=== PATIENT | female | born 1970 | race Caucasian/White ===

== ENCOUNTER 2016-09-18 18:05 | Emergency (ER) | payer SELFPAY ==
[~2016-09-18] VITALS: Ht 185.4 cm; Wt 142.9 kg
[2016-09-18 20:58] VITALS: BP 164/72
--- NOTE | 2016-09-18 22:08 | PHYS DOC ---
Past Medical History Past Medical History: No Pertinent History Past Surgical History: Tubal ligation, Other Additional Past Surgical Histo: dental Alcohol Use: None Drug Use: None Adult General Chief Complaint Chief Complaint: FOOT INJURY PAIN [facility] HPI Patient is a 46 year old female who presents with complaint of pain and redness to the left foot. Patient states that her symptoms started 3 months ago. The patient states that she has visited 2 separate hospitals and has been placed on antibiotic therapy. Patient states that after treatment with nystatin as well as an antibiotic that she is unable to name, the symptoms initially got better. She states however after discontinuing the antibiotics the symptoms came back. Patient states that the foot has become more red, swollen, and painful. Patient denies any associated fever, lightheadedness, chest pain, shortness of breath, nausea, or vomiting. Patient states that her pain as 10 out of 10 with weightbearing. Review of Systems Review of Systems Constitutional: Denies fever or chills [] Eyes: Denies change in visual acuity, redness, or eye pain [] HENT: Denies nasal congestion or sore throat [] Respiratory: Denies cough or shortness of breath [] Cardiovascular: No additional information not addressed in HPI [] GI: Denies abdominal pain, nausea, vomiting, bloody stools or diarrhea [] : Denies dysuria or hematuria [] Musculoskeletal: Left foot pain, redness, swelling [] Integument: Dry skin formation over foot lesions [] Neurologic: Denies headache, focal weakness or sensory changes [] Endocrine: Denies polyuria or polydipsia [] Allergies Allergies Allergies Coded Allergies Type Severity Reaction Last Updated Verified No Known Drug Allergies 05/01/14 No Physical Exam Physical Exam Constitutional: Alert, morbidly obese, afebrile, no acute distress. [] HENT: Normocephalic, atraumatic, bilateral external ears normal, oropharynx moist, no oral exudates, nose normal. [] Eyes: PERRLA, EOMI, conjunctiva normal, no discharge. [] Neck: Normal range of motion, no tenderness, supple, no stridor. [] Cardiovascular:Heart rate regular rhythm, no murmur [] Lungs & Thorax: Bilateral breath sounds clear to auscultation [] Abdomen: Bowel sounds normal, soft, no tenderness, no masses, no pulsatile masses. [] Skin: Warm, dry, left foot erythematous. [] Back: No tenderness, no CVA tenderness. [] Extremities: Discrete erythematous lesions along dorsum, medial, and lateral aspect of left foot with 3+ edema, dry plaque-like lesions present along dorsal lateral aspect of foot, pulses 2+, warmth and tenderness to palpation. [] Neurologic: Alert and oriented X 3, normal motor function, normal sensory function, no focal deficits noted. [] Current Patient Data Vital Signs Vital Signs Date Time Temp Pulse Resp B/P Pulse Ox O2 Delivery O2 Flow Rate FiO2 09/18/16 20:58 98.1 76 16 164/72 99 Room Air 98.1 Lab Values Laboratory Tests Test 09/18/16 22:20 09/18/16 22:30 Urine Collection Type Unknown Urine Color Yellow Urine Clarity Clear Urine pH 5.5 Urine Specific [place] 1.020 Urine Protein Negativemg/dL (NEG-TRACE) Urine Glucose (UA) Negativemg/dL (NEG) Urine Ketones (Stick) Negativemg/dL (NEG) Urine Blood Negative (NEG) Urine Nitrite Negative (NEG) Urine Bilirubin Negative (NEG) Urine Urobilinogen Dipstick 0.2mg/dL (0.2 mg/dL) Urine Leukocyte Esterase Negative (NEG) Urine RBC 0/HPF (0-2) Urine WBC Occ/HPF (0-4) Urine Squamous Epithelial Cells Mod/LPF Urine Bacteria Moderate/HPF (0-FEW) Urine Mucus Mod/LPF White Blood Count 7.8x10^3/uL (4.0-11.0) Red Blood Count 4.58x10^6/uL (3.50-5.40) Hemoglobin 11.9g/dL (12.0-15.5) L Hematocrit 37.4% (36.0-47.0) Mean Corpuscular Volume 82fL (79-100) Mean Corpuscular Hemoglobin 26pg (25-35) Mean Corpuscular Hemoglobin Concent 32g/dL (31-37) Red Cell Distribution Width 16.8% (11.5-14.5) H Platelet Count 321x10^3/uL (140-400) Neutrophils (%) (Auto) 51% (31-73) Lymphocytes (%) (Auto) 38% (24-48) Monocytes (%) (Auto) 8% (0-9) Eosinophils (%) (Auto) 2% (0-3) Basophils (%) (Auto) 1% (0-3) Neutrophils # (Auto) 4.0x10^3uL (1.8-7.7) Lymphocytes # (Auto) 3.0x10^3/uL (1.0-4.8) Monocytes # (Auto) 0.6x10^3/uL (0.0-1.1) Eosinophils # (Auto) 0.1x10^3/uL (0.0-0.7) Basophils # (Auto) 0.1x10^3/uL (0.0-0.2) Sodium Level 143mmol/L (136-145) Potassium Level 3.9mmol/L (3.5-5.1) Chloride Level 105mmol/L (98-107) Carbon Dioxide Level 29mmol/L (21-32) Anion Gap 9 (6-14) Blood Urea Nitrogen 22mg/dL (7-20) H Creatinine 0.9mg/dL (0.6-1.0) Estimated GFR (Cockcroft-Gault) 68.0 BUN/Creatinine Ratio 24 (6-20) H Glucose Level 102mg/dL (70-99) H Calcium Level 8.7mg/dL (8.5-10.1) Total Bilirubin 0.2mg/dL (0.2-1.0) Aspartate Amino Transferase (AST) 17U/L (15-37) Alanine Aminotransferase (ALT) 23U/L (14-59) Alkaline Phosphatase 43U/L (46-116) L Total Protein 7.3g/dL (6.4-8.2) Albumin 3.6g/dL (3.4-5.0) Albumin/Globulin Ratio 1.0 (1.0-1.7) Laboratory Tests 09/18/16 22:30 Laboratory Tests 09/18/16 22:30 EKG EKG Not performed [] Radiology/Procedures Radiology/Procedures Not performed [] Course & Med Decision Making Course & Med Decision Making Pertinent Labs and Imaging studies reviewed. (See chart for details) The patient's presentation and exam showed appears to be a fungal skin infection. It is possible the patient also may have a secondary bacterial infection present. The patient's blood work otherwise is unremarkable at this time. I consult to Dr. Harry of infectious disease. He recommended that the patient be placed on a seven-day course of Diflucan for treatment of resumed fungal skin infection. The patient will also be placed on a seven-day course of doxycycline for treatment of possible secondary bacterial cellulitis. Advise follow-up in 3-4 days a primary doctor and return to the emergency department for any worsening symptoms. Patient voiced understanding and in agreement with treatment plan. Dragon Disclaimer Dragon Disclaimer This electronic medical record was generated, in whole or in part, using a voice recognition dictation system. Departure Departure Impression: Primary Impression: Cellulitis Disposition: HOME, SELF-CARE Condition: STABLE Referrals: NO PCP (PCP) Patient Instructions: Cellulitis Additional Instructions: You are being placed on Diflucan for treatment of what appears to be a fungal skin infection. He will continue on this medication for the next 7 days. It is recommended that you follow-up in the next 3-4 days with primary care for reevaluation. Return to the emergency department for any worsening symptoms. Scripts Doxycycline Hyclate 100 Mg Capsule1 Cap PO BID #14 CAP Prov:SIVA LAUREN MD 09/18/16 Hydrocodone/Apap 5-325 ([place]ne 5-325 Tablet)1 Each Tablet1-2 Tab PO Q4-6HRS #20 TAB Prov:SIVA LAUREN MD 09/18/16 Fluconazole (Diflucan)200 Mg Tablet1 Tab PO DAILY #7 TAB Prov:SIVA LAUREN MD 09/18/16 Problem Qualifiers Primary Impression: Cellulitis Site of cellulitis: extremity Site of cellulitis of extremity: lower extremity Laterality: left Qualified Code: L03.116 - Cellulitis of left lower limb SIVA LAUREN MD Sep 18, 2016 22:08
[2016-09-18 22:32] LABS: BILIRUBIN,URINE NEGATIVE (NEG); GLUCOSE,URINE NEGATIVE (NEG); NITRITE,URINE NEGATIVE (NEG); PH,URINE 5.5; PROTEIN,URINE NEGATIVE (NEG-TRACE); UROBILINOGEN,URINE 0.2 mg/dL (0.2 mg/dL)
[2016-09-18 22:34] LABS: BASO # 0.1 x10^3/uL (0.0-0.2); BASO % 1 % (0-3); EOS % 2 % (0-3); HEMATOCRIT 37.4 % (36.0-47.0); HEMOGLOBIN 11.9 g/dL (12.0-15.5); LYMPH % 38 % (24-48); MEAN CORPUSCULAR HEMOGLOBIN 26 pg (25-35); MEAN CORPUSCULAR HGB CONC 32 g/dL (31-37); MEAN CORPUSCULAR VOLUME 82 fL (79-100); MONO % 8 % (0-9); NEUT % 51 % (31-73); PLATELET COUNT 321 x10^3/uL (140-400); RED BLOOD COUNT 4.58 x10^6/uL (3.50-5.40); RED CELL DISTRIBUTION WIDTH 16.8 % (11.5-14.5); WHITE BLOOD COUNT 7.8 x10^3/uL (4.0-11.0)
[2016-09-18 22:43] LABS: CALCIUM 8.7 mg/dL (8.5-10.1); CREATININE 0.9 mg/dL (0.6-1.0); POTASSIUM 3.9 mmol/L (3.5-5.1)
[2016-09-18 22:48] LABS: ALBUMIN 3.6 g/dL (3.4-5.0); TOTAL BILIRUBIN 0.2 mg/dL (0.2-1.0); TOTAL PROTEIN 7.3 g/dL (6.4-8.2)
[2016-09-18 23:02] LABS: BACTERIA,URINE MODERATE /HPF (0-FEW); RBC,URINE 0 /HPF (0-2); WBC,URINE OCC /HPF (0-4)
[2016-09-18 23:03] LABS: SQUAMOUS EPITHELIAL CELL,UR MOD /LPF
[2016-09-18] MEDS ORDERED: HYDR-971 PO (23:13)
[2016-09-18] MEDS ORDERED: FLUC200T PO (23:13)
[2016-09-18] MEDS ORDERED: DOXY100C2 PO (23:15)
== END 2016-09-19 00:21 | disposition home or self-care (01) ==
LOC: ER 18:05
DX: L03.116 Cellulitis of left lower limb (principal); E66.01 Morbid (severe) obesity due to excess calories; Z68.41 Body mass index [BMI] 40.0-44.9, adult
CPT/HCPCS: 36415; 80053; 81001; 85027; 87086; 99284

== ENCOUNTER 2016-10-12 16:30 | Inpatient (IN) | payer SELFPAY ==
[~2016-10-12] VITALS: Ht 185.4 cm; Wt 153.3 kg
[~2016-10-12 16:30] MED LIST: DOXY100C2 PO; FLUC200T PO; HYDR-971 PO
[2016-10-12 17:40] LABS: BASO # 0.1 x10^3/uL (0.0-0.2); BASO % 1 % (0-3); EOS % 2 % (0-3); HEMATOCRIT 38.4 % (36.0-47.0); HEMOGLOBIN 12.3 g/dL (12.0-15.5); LYMPH # 2.3 x10^3/uL (1.0-4.8); LYMPH % 34 % (24-48); MEAN CORPUSCULAR HEMOGLOBIN 27 pg (25-35); MEAN CORPUSCULAR HGB CONC 32 g/dL (31-37); MEAN CORPUSCULAR VOLUME 83 fL (79-100); MONO % 9 % (0-9); NEUT % 53 % (31-73); PLATELET COUNT 330 x10^3/uL (140-400); RED BLOOD COUNT 4.65 x10^6/uL (3.50-5.40); RED CELL DISTRIBUTION WIDTH 16.7 % (11.5-14.5); WHITE BLOOD COUNT 6.6 x10^3/uL (4.0-11.0)
[2016-10-12 17:50] LABS: CALCIUM 8.8 mg/dL (8.5-10.1); GFR 60.2; POTASSIUM 3.6 mmol/L (3.5-5.1)
[2016-10-12] MEDS ORDERED: FENTANYL PF 100 MCG/2 ML VIAL. IV PRN (18:00)
[2016-10-12] MEDS ORDERED: ACETAMINOPHEN 325 MG TABLET. PO PRN (18:00)
[2016-10-12] MEDS ORDERED: VANCOMYCIN PER PHARMACY MC PRN (18:00)
[2016-10-12] MEDS ORDERED: ONDANSETRON PF 4 MG/2 ML VIAL. IV PRN (18:00)
[2016-10-12] MEDS ORDERED: VANCOMYCIN 2 GM in IV NORMAL SALINE 500ML BAG 500 ML IV ONE (18:15)
--- NOTE | 2016-10-12 18:57 | PHYS DOC ---
Past Medical History Past Medical History: No Pertinent History Past Surgical History: Tubal ligation, Other Additional Past Surgical Histo: dental Alcohol Use: None Drug Use: None Adult General Chief Complaint Chief Complaint: CELLULITIS HPI HPI Patient is a 46 year old female who presents with worsening left lower extremity painful rash over the past few months. She has been seen by 3 emergency departments over this time and has completed a course of antibiotics each time. Most recently, she was seen here on 09/18/16 and treated with doxycycline and Diflucan for suspected yeast infection with bacterial superinfection. She completed this course of treatment and had some improvement with her rash without complete resolution. It is now worse than it has ever been. Rash includes her left foot extending proximally up her ankle and leg. She states she has achy pain with pressure. She denies exertional leg pain, fever or chills, myalgia, injury. Review of Systems Review of Systems Constitutional: Denies fever or chills [] Eyes: Denies change in visual acuity, redness, or eye pain [] HENT: Denies nasal congestion or sore throat [] Respiratory: Denies cough or shortness of breath [] Cardiovascular: No additional information not addressed in HPI [] GI: Denies abdominal pain, nausea, vomiting, bloody stools or diarrhea [] : Denies dysuria or hematuria [] Musculoskeletal: Denies back pain or joint pain [] Integument: Denies skin lesions [] Neurologic: Denies headache, focal weakness or sensory changes [] Endocrine: Denies polyuria or polydipsia [] Allergies Allergies Allergies Coded Allergies Type Severity Reaction Last Updated Verified No Known Drug Allergies 05/01/14 No Physical Exam Physical Exam Constitutional: Well developed, well nourished, no acute distress, non-toxic appearance. [] HENT: Normocephalic, atraumatic, bilateral external ears normal, oropharynx moist, no oral exudates, nose normal. [] Eyes: PERRLA, EOMI, conjunctiva normal, no discharge. [] Neck: Normal range of motion, supple. [] Cardiovascular:Heart rate regular rhythm, no murmur [] Lungs & Thorax: Bilateral breath sounds clear to auscultation [] Abdomen: Bowel sounds normal, soft, no tenderness. [] Skin: Warm, dry. [] Back: Normal ROM. [] Extremities: ROM intact, no edema. Left foot, ankle and distal leg with cracked , scaly, erythematous rash with appropriate tenderness; no fluctuance or crepitance; Equal 1+ bilateral DP pulses [] Neurologic: Alert and oriented X 3, normal motor function, normal sensory function, no focal deficits noted. [] Psychologic: Affect normal, judgement normal, mood normal. [] Current Patient Data Vital Signs Vital Signs Date Time Temp Pulse Resp B/P Pulse Ox O2 Delivery O2 Flow Rate FiO2 10/12/16 16:32 98.2 79 18 155/61 100 Room Air 98.2 Lab Values Laboratory Tests Test 10/12/16 17:31 White Blood Count 6.6x10^3/uL (4.0-11.0) Red Blood Count 4.65x10^6/uL (3.50-5.40) Hemoglobin 12.3g/dL (12.0-15.5) Hematocrit 38.4% (36.0-47.0) Mean Corpuscular Volume 83fL (79-100) Mean Corpuscular Hemoglobin 27pg (25-35) Mean Corpuscular Hemoglobin Concent 32g/dL (31-37) Red Cell Distribution Width 16.7% (11.5-14.5) H Platelet Count 330x10^3/uL (140-400) Neutrophils (%) (Auto) 53% (31-73) Lymphocytes (%) (Auto) 34% (24-48) Monocytes (%) (Auto) 9% (0-9) Eosinophils (%) (Auto) 2% (0-3) Basophils (%) (Auto) 1% (0-3) Neutrophils # (Auto) 3.5x10^3uL (1.8-7.7) Lymphocytes # (Auto) 2.3x10^3/uL (1.0-4.8) Monocytes # (Auto) 0.6x10^3/uL (0.0-1.1) Eosinophils # (Auto) 0.2x10^3/uL (0.0-0.7) Basophils # (Auto) 0.1x10^3/uL (0.0-0.2) Sodium Level 144mmol/L (136-145) Potassium Level 3.6mmol/L (3.5-5.1) Chloride Level 106mmol/L (98-107) Carbon Dioxide Level 27mmol/L (21-32) Anion Gap 11 (6-14) Blood Urea Nitrogen 19mg/dL (7-20) Creatinine 1.0mg/dL (0.6-1.0) Estimated GFR (Cockcroft-Gault) 60.2 Glucose Level 95mg/dL (70-99) Calcium Level 8.8mg/dL (8.5-10.1) Laboratory Tests 10/12/16 17:31 Laboratory Tests 10/12/16 17:31 Course & Med Decision Making Course & Med Decision Making Pertinent Labs and Imaging studies reviewed. (See chart for details) Laboratory evaluation is unremarkable. Plan for admission for failure of outpatient treatment of cellulitis. Discussed case with Dr. Still, who will admit. Infectious disease consult placed. Crow Disclaimer Dragon Disclaimer This electronic medical record was generated, in whole or in part, using a voice recognition dictation system. Departure Departure Impression: Primary Impression: Cellulitis Disposition: ADMITTED INPATIENT Condition: STABLE Referrals: NO PCP (PCP) Problem Qualifiers Primary Impression: Cellulitis Site of cellulitis: extremity Site of cellulitis of extremity: lower extremity Laterality: left Qualified Code: L03.116 - Cellulitis of left lower limb Jessica MOHAN MD Oct 12, 2016 18:57
--- NOTE | 2016-10-12 19:14 | RAD ---
PROCEDURE Left lower extremity arterial Doppler. HISTORY Redness, swelling, pain in left foot and ankle. Cellulitis. TECHNIQUE Grayscale, color Doppler, can spectral Doppler imaging was performed of the arteries of the left lower extremity. COMPARISON None. FINDINGS All arteries of the left lower extremity from the left external iliac artery through the dorsalis pedis artery are patent. All arteries demonstrate abnormal monophasic waveforms. The left common femoral artery appears to have elevated velocities at 242 centimeters/sec. No other areas of velocity elevation are seen in the left lower extremity arteries. Grayscale images demonstrate a reactive left inguinal lymph nodes. IMPRESSION 1. All arteries of left lower extremity are patent and demonstrate abnormal monophasic waveforms from left external iliac artery through the dorsalis pedis artery. Inflow disease is possible, such as involving left common iliac artery or distal aorta. 2. There is elevation of velocity involving the left common femoral artery. Consequently, there might be stenosis in this location. Electronically signed by: Larry Dewitt MD (Oct 12, 2016 19:13:14)
[2016-10-12 20:10] VITALS: BP 155/68
[2016-10-12] MEDS ORDERED: CEFTRIAXONE SODIUM 1 GM in IV NORMAL SALINE 50ML 50 ML IV SCH (21:00)
[2016-10-12 23:00] VITALS: BP 140/58
--- NOTE | 2016-10-13 00:19 | HP ---
ADMIT DATE: 10/12/2016 CHIEF COMPLAINT: Right lower extremity pain, swelling, erythema. HISTORY OF PRESENT ILLNESS: The patient is a pleasant 46-year-old female who presents with left lower extremity swelling, pain and erythema, appears she has cellulitis. I have discussed the case with the ER physician. We are going to admit the patient and give her IV antibiotics. PAST MEDICAL HISTORY: Previous cellulitis of the left lower extremity. ALLERGIES: None. FAMILY HISTORY: Hypertension. SOCIAL HISTORY: She does not drink, smoke or take drugs. She does not go to doctor. MEDICATIONS: Reviewed, please refer to the MRAD. REVIEW OF SYSTEMS: GENERAL: No history of weight change, weakness or fevers. SKIN: No bruising, hair changes or rashes. EYES: No blurred, double or loss of vision. NOSE AND THROAT: No history of nosebleeds, hoarseness or sore throat. HEART: No history of palpitations, chest pain or shortness of breath on exertion. LUNGS: Denies cough, hemoptysis, wheezing or shortness of breath. GASTROINTESTINAL: Denies changes in appetite, nausea, vomiting, diarrhea or constipation. GENITOURINARY: No history of frequency, urgency, hesitancy or nocturia. NEUROLOGIC: Denies history of numbness, tingling, tremor or weakness. PSYCHIATRIC: No history of panic, anxiety or depression. ENDOCRINE: No history of heat or cold intolerance, polyuria or polydipsia. EXTREMITIES: She complains of left leg pain. PHYSICAL EXAMINATION: VITAL SIGNS: Temperature is afebrile at 97.7, pulse 78, respirations 20, blood pressure 155/82. GENERAL: She is alert, cooperative. HEENT: She has a large mass on her right jaw. She states she has had this since as a child, but has never been evaluated. HEART: Normal S1, S2. LUNGS: Clear. ABDOMEN: Soft, positive bowel sounds. EYES: Left lower extremity has impressive cellulitis with dry skin, on top of that it is erythematous. It is painful. ENDOCRINE: No thyromegaly. LYMPHATICS: No cervical nodes. HEMATOPOIETIC: No bruising. LABORATORY DATA: Hematology normal. Electrolytes normal. ASSESSMENT AND PLAN: Left lower extremity cellulitis with the incidental finding of a large mass on her right jaw. We will go ahead and start IV antibiotics, wound care. Continue home medicines, PT/OT. I am going to check a CT of the maxillary and facial bones to see what this mass is on her face, although if it is true that she has had this since she was a child, I doubt it is anything serious. PT/OT, evaluate and treat. CONSULT: Dr. Harry, Infectious Disease. NIAL Mario ARMSTRONG DO DR: LION/oral JOB#: [id number] / [id number]
[2016-10-13] MEDS ORDERED: VANCOMYCIN 1.75 GM in IV NORMAL SALINE 500ML BAG 500 ML IV SCH (02:30)
[2016-10-13 03:00] VITALS: BP 129/76
[2016-10-13 07:00] VITALS: BP 126/74
[2016-10-13] MEDS ORDERED: CONTRAST GIVEN MC PRN (09:45)
[2016-10-13] MEDS ORDERED: IOHEXOL 300 MG/ML 75 ML VIAL IV ONE (09:45)
[2016-10-13 10:52] VITALS: BP 145/87
--- NOTE | 2016-10-13 11:05 | RAD ---
Examination: CT soft tissue neck with IV contrast History: History of growth on the right cheek Comparison: None available Technique: Axial CT images of the soft tissue neck were performed with IV contrast. Coronal and sagittal reformats were performed. PQRS Compliance Statement: One or more of the following individualized dose reduction techniques were utilized for this examination: 1. Automated exposure control 2. Adjustment of the mA and/or kV according to patient size 3. Use of iterative reconstruction technique Findings: There is a 3.5 x 2.6 x 2.1 cm heterogeneous lesion/mass identified in the right cheek region, in the subcutaneous region abutting the skin superficially and the deep portion abutting the right parotid gland. The mass demonstrates some enhancement within. The mass measures 46 Hounsfield units. No evidence of inflammatory fat stranding identified surrounding this region. The bilateral orbital globes appear intact. The retro-orbital fat is maintained. The parapharyngeal spaces, optical lathe operator spaces grossly appears unremarkable. The visualized vallecula, piriform sinus grossly appears unremarkable. Small bilateral cervical lymph nodes identified with the largest measuring 1 cm in the left cervical level 2 region. There is some mild asymmetry identified in the base of the tongue with some minimal prominence on the right. The visualized paranasal sinuses, mastoid air cells are clear. Impression: 1. 3.5 cm heterogeneous mass identified in the right cheek region in the subcutaneous region. Differential includes sebaceous cyst, lymph node, subcutaneous nodule or mass. 2. There is some mild asymmetry identified in the base of the tongue with minimal prominence of the right, nonspecific. Direct endoscopic evaluation can be considered. 3. Small nonspecific bilateral cervical lymph nodes particularly in the level 2 region.
--- NOTE | 2016-10-13 11:13 | PDOC ---
Infectious Disease Note ROS ROS GEN: Denies fevers, chills, sweats HEENT: Denies blurred vision, sore throat CV: Denies chest pain RESP: Denies shortness of air, cough GI: Denies n/v/d NEURO: Denies confusion, dizziness MSK: Denies weakness, joint pain/swelling Vital Sign Vital Signs Vital Signs Date Time Temp Pulse Resp B/P Pulse Ox O2 Delivery O2 Flow Rate FiO2 10/13/16 10:52 97.4 66 20 145/87 97 Room Air 97.4 Physical Exam PHYSICAL EXAM GENERAL: NAD, Alert HEENT: PERRL, OC/OP NECK: Supple, no JVD, no LN LUNGS: Clear HEART: S1S2, no gallop, no murmur ABD: Soft, NT, no organomegaly, no rebound EXT: No edema, no cyanosis FRAME TRIMMER: Alert, oriented x 3, no focal neurologic deficit SKIN: No rash IV: ok Labs Lab Laboratory Tests Test 10/12/16 17:31 White Blood Count 6.6x10^3/uL (4.0-11.0) Red Blood Count 4.65x10^6/uL (3.50-5.40) Hemoglobin 12.3g/dL (12.0-15.5) Hematocrit 38.4% (36.0-47.0) Mean Corpuscular Volume 83fL (79-100) Mean Corpuscular Hemoglobin 27pg (25-35) Mean Corpuscular Hemoglobin Concent 32g/dL (31-37) Red Cell Distribution Width 16.7% (11.5-14.5) Platelet Count 330x10^3/uL (140-400) Neutrophils (%) (Auto) 53% (31-73) Lymphocytes (%) (Auto) 34% (24-48) Monocytes (%) (Auto) 9% (0-9) Eosinophils (%) (Auto) 2% (0-3) Basophils (%) (Auto) 1% (0-3) Neutrophils # (Auto) 3.5x10^3uL (1.8-7.7) Lymphocytes # (Auto) 2.3x10^3/uL (1.0-4.8) Monocytes # (Auto) 0.6x10^3/uL (0.0-1.1) Eosinophils # (Auto) 0.2x10^3/uL (0.0-0.7) Basophils # (Auto) 0.1x10^3/uL (0.0-0.2) Sodium Level 144mmol/L (136-145) Potassium Level 3.6mmol/L (3.5-5.1) Chloride Level 106mmol/L (98-107) Carbon Dioxide Level 27mmol/L (21-32) Anion Gap 11 (6-14) Blood Urea Nitrogen 19mg/dL (7-20) Creatinine 1.0mg/dL (0.6-1.0) Estimated GFR (Cockcroft-Gault) 60.2 Glucose Level 95mg/dL (70-99) Calcium Level 8.8mg/dL (8.5-10.1) Objective Assessment LLE cellulitis Plaque like pruritic rash foot ? exposure history Obesity Tobacco abuse Right cheek ? cystic lesion Plan Plan of Care Dose Fluconazole/Zyvox Prednisone times one F/u results Thank you # [id number] LAKESHIA EVANS MD Oct 13, 2016 11:13
[2016-10-13] MEDS ORDERED: PREDNISONE 20 MG TABLET PO ONE (11:15)
--- NOTE | 2016-10-13 11:32 | PDOC ---
PROGRESS NOTES Chief Complaint Chief Complaint - cellulitis of L lower extremity; swelling, pain and erythema - asymptomatic mass of the R jaw History of Present Illness History of Present Illness Patient sitting up in bed and in no acute distress when evaluated this AM. Denying any new complaints. Pt agreeable to maxillofacial CT to better understand the mass over her R jaw. She repeats that she has had the mass since childhood, and for the most part it stopped growing some time ago. Vitals Vitals Vital Signs Date Time Temp Pulse Resp B/P Pulse Ox O2 Delivery O2 Flow Rate FiO2 10/13/16 10:52 97.4 66 20 145/87 97 Room Air 97.4 Physical Exam General: Alert, Cooperative, No acute distress Heart: Regular rate, Normal S1, No murmurs Lungs: Clear Abdomen: Soft, No tenderness Extremities: Other (LLE cellulitis with dry skin, erythematous and painful) Skin: Other (LLE cellulitis with dry skin, erythematous and painful) Labs LABS Laboratory Tests Test 10/12/16 17:31 White Blood Count 6.6x10^3/uL (4.0-11.0) Red Blood Count 4.65x10^6/uL (3.50-5.40) Hemoglobin 12.3g/dL (12.0-15.5) Hematocrit 38.4% (36.0-47.0) Mean Corpuscular Volume 83fL (79-100) Mean Corpuscular Hemoglobin 27pg (25-35) Mean Corpuscular Hemoglobin Concent 32g/dL (31-37) Red Cell Distribution Width 16.7% (11.5-14.5) Platelet Count 330x10^3/uL (140-400) Neutrophils (%) (Auto) 53% (31-73) Lymphocytes (%) (Auto) 34% (24-48) Monocytes (%) (Auto) 9% (0-9) Eosinophils (%) (Auto) 2% (0-3) Basophils (%) (Auto) 1% (0-3) Neutrophils # (Auto) 3.5x10^3uL (1.8-7.7) Lymphocytes # (Auto) 2.3x10^3/uL (1.0-4.8) Monocytes # (Auto) 0.6x10^3/uL (0.0-1.1) Eosinophils # (Auto) 0.2x10^3/uL (0.0-0.7) Basophils # (Auto) 0.1x10^3/uL (0.0-0.2) Sodium Level 144mmol/L (136-145) Potassium Level 3.6mmol/L (3.5-5.1) Chloride Level 106mmol/L (98-107) Carbon Dioxide Level 27mmol/L (21-32) Anion Gap 11 (6-14) Blood Urea Nitrogen 19mg/dL (7-20) Creatinine 1.0mg/dL (0.6-1.0) Estimated GFR (Cockcroft-Gault) 60.2 Glucose Level 95mg/dL (70-99) Calcium Level 8.8mg/dL (8.5-10.1) Review of Systems Review of Systems denies fever, chills denies chest pain, shortness of air + pain and redness over the L leg Assessment and Plan Assessmemt and Plan ASSESSMENT: - cellulitis of L lower extremity; swelling, pain and erythema - asymptomatic mass of the R jaw PLAN: - Maxillofacial CT for R jaw mass - per ID: cont IV Fluconazole / Zyvox - wound care nursing consult - cont home meds - PTOT - repeat daily labs Problems: Comment Review of Relevant I have reviewed the following items cassandra (where applicable) has been applied. Labs Laboratory Tests Test 10/12/16 17:31 White Blood Count 6.6x10^3/uL (4.0-11.0) Red Blood Count 4.65x10^6/uL (3.50-5.40) Hemoglobin 12.3g/dL (12.0-15.5) Hematocrit 38.4% (36.0-47.0) Mean Corpuscular Volume 83fL (79-100) Mean Corpuscular Hemoglobin 27pg (25-35) Mean Corpuscular Hemoglobin Concent 32g/dL (31-37) Red Cell Distribution Width 16.7% (11.5-14.5) Platelet Count 330x10^3/uL (140-400) Neutrophils (%) (Auto) 53% (31-73) Lymphocytes (%) (Auto) 34% (24-48) Monocytes (%) (Auto) 9% (0-9) Eosinophils (%) (Auto) 2% (0-3) Basophils (%) (Auto) 1% (0-3) Neutrophils # (Auto) 3.5x10^3uL (1.8-7.7) Lymphocytes # (Auto) 2.3x10^3/uL (1.0-4.8) Monocytes # (Auto) 0.6x10^3/uL (0.0-1.1) Eosinophils # (Auto) 0.2x10^3/uL (0.0-0.7) Basophils # (Auto) 0.1x10^3/uL (0.0-0.2) Sodium Level 144mmol/L (136-145) Potassium Level 3.6mmol/L (3.5-5.1) Chloride Level 106mmol/L (98-107) Carbon Dioxide Level 27mmol/L (21-32) Anion Gap 11 (6-14) Blood Urea Nitrogen 19mg/dL (7-20) Creatinine 1.0mg/dL (0.6-1.0) Estimated GFR (Cockcroft-Gault) 60.2 Glucose Level 95mg/dL (70-99) Calcium Level 8.8mg/dL (8.5-10.1) Laboratory Tests Test 10/12/16 17:31 White Blood Count 6.6x10^3/uL (4.0-11.0) Red Blood Count 4.65x10^6/uL (3.50-5.40) Hemoglobin 12.3g/dL (12.0-15.5) Hematocrit 38.4% (36.0-47.0) Mean Corpuscular Volume 83fL (79-100) Mean Corpuscular Hemoglobin 27pg (25-35) Mean Corpuscular Hemoglobin Concent 32g/dL (31-37) Red Cell Distribution Width 16.7% (11.5-14.5) Platelet Count 330x10^3/uL (140-400) Neutrophils (%) (Auto) 53% (31-73) Lymphocytes (%) (Auto) 34% (24-48) Monocytes (%) (Auto) 9% (0-9) Eosinophils (%) (Auto) 2% (0-3) Basophils (%) (Auto) 1% (0-3) Neutrophils # (Auto) 3.5x10^3uL (1.8-7.7) Lymphocytes # (Auto) 2.3x10^3/uL (1.0-4.8) Monocytes # (Auto) 0.6x10^3/uL (0.0-1.1) Eosinophils # (Auto) 0.2x10^3/uL (0.0-0.7) Basophils # (Auto) 0.1x10^3/uL (0.0-0.2) Sodium Level 144mmol/L (136-145) Potassium Level 3.6mmol/L (3.5-5.1) Chloride Level 106mmol/L (98-107) Carbon Dioxide Level 27mmol/L (21-32) Anion Gap 11 (6-14) Blood Urea Nitrogen 19mg/dL (7-20) Creatinine 1.0mg/dL (0.6-1.0) Estimated GFR (Cockcroft-Gault) 60.2 Glucose Level 95mg/dL (70-99) Calcium Level 8.8mg/dL (8.5-10.1) Medications Current Medications Vancomycin HCl (Vanco Per Pharmacy) 1 each PRN DAILY PRN MC SEE COMMENTS Last administered on 10/12/16 19:54; Start 10/12/16 at 18:00; Stop 10/12/16 at 20:55 ; Status DC Ondansetron HCl (Zofran) 4 mg PRN Q8HRS PRN IV NAUSEA/VOMITING; Start 10/12/16 at 18:00; Stop 10/13/16 at 17:59 Fentanyl Citrate (Fentanyl 2ml Vial) 50 mcg PRN Q2HR PRN IV PAIN; Start at 18:00; Stop 10/13/16 at 17:59 Acetaminophen 650 mg 650 mg PRN Q4HRS PRN PO FEVER; Start 10/12/16 at 18:00; Stop 10/13/16 at 17:59 Vancomycin HCl 2 gm/Sodium Chloride 500 ml @ 250 mls/hr 1X ONCE IV Last administered on 10/12/16 18:32; Start 10/12/16 at 18:15; Stop 10/12/16 at 20:14 ; Status DC Vancomycin HCl/ Sodium Chloride (Iv Sodium Chloride 0.9% 500ml Bag) 500 ml @ 250 mls/hr Q8H IV ; Start 10/13/16 at 02:30; Stop 10/13/16 at 02:30; Status DC Vancomycin HCl 1 each 1 each 1X ONCE MC ; Start 10/13/16 at 18:00; Stop at 18:00; Status DC Ceftriaxone Sodium/Sodium Chloride (Rocephin/Iv Sodium Chloride 0.9% 50ml) 50 ml @ 100 mls/hr Q24H IV Last administered on 10/12/16t 21:58; Start 10/12/16 at 21:00 Iohexol (Omnipaque 300 Mg/ml) 75 ml 1X ONCE IV Last administered on 10/13/16t 10:04; Start 10/13/16 at 09:45; Stop 10/13/16 at 09:46; Status DC Info (Do NOT chart on this entry -- for MONITORING) 1 each PRN DAILY PRN MC SEE COMMENTS; Start 10/13/16 at 09:45; Stop 10/15/16 at 09:44 Fluconazole (Diflucan) 200 mg DAILY PO ; Start 10/13/16 at 11:15; Status UNV Linezolid (Zyvox) 600 mg BID PO ; Start 10/13/16 at 21:00; Status UNV Prednisone (Prednisone) 60 mg 1X ONCE PO ; Start 10/13/16 at 11:15; Stop at 11:16; Status UNV Active Scripts Active Doxycycline Hyclate 100 Mg Capsule 1 Cap PO BID [place] 5-325 Tablet (Acetaminophen/Hydrocodone Bitart) 1 Each Tablet 1-2 Tab PO Q4-6HRS Diflucan (Fluconazole) 200 Mg Tablet 1 Tab PO DAILY Reported No Known Medications Prior To Admisstion (Info) Each 1 Each Vitals/I & O Vital Sign - Last 24 Hours 10/12/16 10/12/16 10/12/16 10/12/16 16:32 17:10 17:40 18:10 Temp 98.2 98.2 Pulse 79 78 72 72 Resp 18 18 18 16 B/P 155/61 157/83 152/72 142/66 Pulse Ox 100 100 98 98 O2 Delivery Room Air Room Air 10/12/16 10/12/16 10/12/16 10/12/16 18:40 19:10 19:40 20:10 Temp 97.7 97.7 Pulse 70 76 72 78 Resp 18 16 16 20 B/P 152/85 145/67 137/66 155/68 Pulse Ox 98 96 97 98 O2 Delivery Room Air Room Air Room Air 10/12/16 10/12/16 10/13/16 10/13/16 22:00 23:00 03:00 07:00 Temp 97.9 98.6 98.1 97.9 98.6 98.1 Pulse 75 86 74 Resp B/P 140/58 129/76 126/74 Pulse Ox 98 94 94 O2 Delivery Room Air Room Air Room Air Room Air 10/13/16 10:52 Temp 97.4 97.4 Pulse 66 Resp 20 B/P 145/87 Pulse Ox 97 O2 Delivery Room Air Intake and Output 10/12/16 10/12/16 10/13/16 15:00 23:00 07:00 Intake Total 500 ml Output Total 800 ml 0 ml Balance -300 ml 0 ml JATIN ARMSTRONG III DO Oct 13, 2016 11:32
[2016-10-13] MEDS: FLUCONAZOLE 100 MG TABLET. PO SCH (11:40)
[2016-10-13] MEDS: LINEZOLID 600 MG TABLET PO SCH ×2 (12:16→21:09)
[2016-10-13 14:40] VITALS: BP 141/80
[2016-10-13 19:00] VITALS: BP 152/77
[2016-10-13] MEDS: CEFPODOXIME PROXETIL 100 MG TABLET PO SCH (21:09)
[2016-10-13 23:00] VITALS: BP 152/88
[2016-10-14 03:00] VITALS: BP 141/81
[2016-10-14 04:51] LABS: BASO % 0 % (0-3); EOS % 0 % (0-3); HEMATOCRIT 37.4 % (36.0-47.0); HEMOGLOBIN 12.1 g/dL (12.0-15.5); LYMPH # 1.7 x10^3/uL (1.0-4.8); LYMPH % 21 % (24-48); MEAN CORPUSCULAR HEMOGLOBIN 26 pg (25-35); MEAN CORPUSCULAR HGB CONC 32 g/dL (31-37); MEAN CORPUSCULAR VOLUME 81 fL (79-100); MONO % 8 % (0-9); NEUT % 70 % (31-73); PLATELET COUNT 320 x10^3/uL (140-400); RED BLOOD COUNT 4.63 x10^6/uL (3.50-5.40); RED CELL DISTRIBUTION WIDTH 16.5 % (11.5-14.5); WHITE BLOOD COUNT 8.2 x10^3/uL (4.0-11.0)
[2016-10-14 05:02] LABS: CALCIUM 8.7 mg/dL (8.5-10.1); CREATININE 0.8 mg/dL (0.6-1.0); GFR 77.9; POTASSIUM 4.4 mmol/L (3.5-5.1)
--- NOTE | 2016-10-14 06:49 | CONS ---
DATE OF CONSULTATION: 10/13/2016 PATIENT'S ROOM: 560 REQUESTING PHYSICIAN: Dr. Still. REASON FOR CONSULTATION: Cellulitis. HISTORY OF PRESENT ILLNESS: The patient is a pleasant 46-year-old female with a history of obesity, hypertension. She had complications with recurrent lower extremity cellulitis on the left. She has been treated in the outpatient setting with oral nystatin as well as oral doxycycline as well as fluconazole. She states she most recently took doxycycline and fluconazole and the leg practically cleared up, but after discontinuing this, it began to worsen. She then developed some pain in the left leg and then it began to creep up her ankle. Additionally, she is concerned that a spot may be starting on her second foot. She has no other rashes anywhere else on her body. Denies any exposure history. She does have a dog, walks around a lot with her bare feet. The rash is itchy, but she denies any fevers, chills or sweats. No headaches, sore throat or cough. No chest pain. No nausea, vomiting, or diarrhea. No dysuria, frequency or urgency. She was admitted to the hospital and placed on Rocephin and given some vancomycin. Vancomycin has since been discontinued. PAST MEDICAL HISTORY: Positive for the above-mentioned cellulitis, history of morbid obesity. PAST SURGICAL HISTORY: Positive for tubal. REVIEW OF SYSTEMS: Otherwise negative. ALLERGIES: No known drug allergies. SOCIAL HISTORY: She is a smoker and again has a dog and walks around quite a bit without her shoes. FAMILY HISTORY: Positive for hypertension. CURRENT MEDICATIONS: Include Rocephin, vancomycin, Zofran and Tylenol. Other meds are available and reviewed in the chart. PHYSICAL EXAMINATION: VITAL SIGNS: She is afebrile, temperature 97.4, pulse 66, respirations 20, blood pressure 145/87, satting 97% on room air. CONSTITUTIONAL: She is cooperative. She is in no acute distress. She is morbidly obese. HEENT: Pupils are equal and reactive with normal conjunctivae. Oral cavity, oropharynx is clear. She has swelling just over her parotid area that is nontender. It is mobile. There is no warmth. NECK: Supple with good range of motion. LUNGS: Clear to auscultation bilaterally. HEART: S1, S2. ABDOMEN: Morbidly obese, soft, nontender, nondistended, with positive bowel sounds. EXTREMITIES: No clubbing, cyanosis. Her left lower extremity has an area of erythema and scaling in a sock like distribution. There are some areas that are warm. She has a good pulse, but it is tender with deep palpation. Questionable scaling in her right dorsal foot. Skin is otherwise warm to touch. No other signs of any plaquing in any joint spaces or elsewhere. SKIN: Warm to touch. NEUROLOGIC: She is nonfocal, moves all extremities. PSYCHIATRIC: Affect is appropriate. LABORATORY DATA: White count 66, hemoglobin 12.3, platelets of 300 with a normal differential. She does not have any eosinophilia. Creatinine was 1.0. Glucose was 95. IMPRESSION: 1. Left lower extremity cellulitis. 2. Plaque like pruritic rash on her foot, questionable exposure history. 3. Obesity. 4. Tobacco abuse. 5. Right cheek questionable cystic lesion. RECOMMENDATIONS: We will dose fluconazole as well as Zyvox. We will continue the Rocephin for now, give prednisone x 1 and follow up on the results. Thank you for allowing me to participate in this patient's care. If you have any questions, please do not hesitate to contact me. LAKESHIA EVANS MD DR: LINH/oral JOB#: [id number] / [id number]
[2016-10-14 07:20] VITALS: BP 155/87
[2016-10-14] MEDS: CEFPODOXIME PROXETIL 100 MG TABLET PO SCH (09:03)
[2016-10-14] MEDS: FLUCONAZOLE 100 MG TABLET. PO SCH (09:03)
[2016-10-14] MEDS: LINEZOLID 600 MG TABLET PO SCH (09:03)
--- NOTE | 2016-10-14 10:00 | PDOC ---
PROGRESS NOTES Chief Complaint Chief Complaint - cellulitis of L lower extremity; swelling, pain and erythema - asymptomatic mass of the R jaw History of Present Illness History of Present Illness Patient sitting up in bed and in no acute distress when evaluated this AM. Denying any new complaints. Was seen by wound care nurse yesterday and was educated on how to care for the leg at home. Pt feels ready to go home and will continue the antibiotic course. She expressed that she will be unable to afford Zyvox however. Pt not sure if she needs the mass removed from her face. We referred her to Dr. Stu Peralta if in the future she decides she'd like to have it taken care of. Discussed case with RN. Vitals Vitals Vital Signs Date Time Temp Pulse Resp B/P Pulse Ox O2 Delivery O2 Flow Rate FiO2 10/14/16 07:20 98.1 72 14 155/87 97 Room Air 98.1 Physical Exam General: Alert, Cooperative, No acute distress Heart: Regular rate, Normal S1, No murmurs Lungs: Clear Abdomen: Soft, No tenderness Extremities: Other (LLE cellulitis with dry skin, erythematous and painful) Skin: Other (LLE cellulitis with dry skin, erythematous and painful) Labs LABS Laboratory Tests Test 10/14/16 04:05 White Blood Count 8.2x10^3/uL (4.0-11.0) Red Blood Count 4.63x10^6/uL (3.50-5.40) Hemoglobin 12.1g/dL (12.0-15.5) Hematocrit 37.4% (36.0-47.0) Mean Corpuscular Volume 81fL (79-100) Mean Corpuscular Hemoglobin 26pg (25-35) Mean Corpuscular Hemoglobin Concent 32g/dL (31-37) Red Cell Distribution Width 16.5% (11.5-14.5) Platelet Count 320x10^3/uL (140-400) Neutrophils (%) (Auto) 70% (31-73) Lymphocytes (%) (Auto) 21% (24-48) Monocytes (%) (Auto) 8% (0-9) Eosinophils (%) (Auto) 0% (0-3) Basophils (%) (Auto) 0% (0-3) Neutrophils # (Auto) 5.7x10^3uL (1.8-7.7) Lymphocytes # (Auto) 1.7x10^3/uL (1.0-4.8) Monocytes # (Auto) 0.7x10^3/uL (0.0-1.1) Eosinophils # (Auto) 0.0x10^3/uL (0.0-0.7) Basophils # (Auto) 0.0x10^3/uL (0.0-0.2) Sodium Level 142mmol/L (136-145) Potassium Level 4.4mmol/L (3.5-5.1) Chloride Level 108mmol/L (98-107) Carbon Dioxide Level 24mmol/L (21-32) Anion Gap 10 (6-14) Blood Urea Nitrogen 16mg/dL (7-20) Creatinine 0.8mg/dL (0.6-1.0) Estimated GFR (Cockcroft-Gault) 77.9 Glucose Level 121mg/dL (70-99) Calcium Level 8.7mg/dL (8.5-10.1) Review of Systems Review of Systems denies fever, chills denies chest pain, shortness of air + pain and redness over the L leg Assessment and Plan Assessmemt and Plan IMAGING: CT Maxillofacial- Impression: 1. 3.5 cm heterogeneous mass identified in the right cheek region in the subcutaneous region. Differential includes sebaceous cyst, lymph node, subcutaneous nodule or mass. 2. There is some mild asymmetry identified in the base of the tongue with minimal prominence of the right, nonspecific. Direct endoscopic evaluation can be considered. 3. Small nonspecific bilateral cervical lymph nodes particularly in the level 2 region. ASSESSMENT: - cellulitis of L lower extremity; swelling, pain and erythema - asymptomatic mass of the R jaw, likely cystic PLAN: - possible discharge today if ok by ID. - home with PO antibiotics per ID. Pt reports issue with cost of Zyvox. - seen by wound care and educated on caring for the legs at home. - Maxillofacial CT for R jaw mass performed. Referral given for Dr. Stu Peralta, oromoxofacial surgeon if pt desires removal. - cont home meds Problems: Comment Review of Relevant I have reviewed the following items cassandra (where applicable) has been applied. Labs Laboratory Tests Test 10/12/16 17:31 10/14/16 04:05 White Blood Count 6.6x10^3/uL (4.0-11.0) 8.2x10^3/uL (4.0-11.0) Red Blood Count 4.65x10^6/uL (3.50-5.40) 4.63x10^6/uL (3.50-5.40) Hemoglobin 12.3g/dL (12.0-15.5) 12.1g/dL (12.0-15.5) Hematocrit 38.4% (36.0-47.0) 37.4% (36.0-47.0) Mean Corpuscular Volume 83fL (79-100) 81fL (79-100) Mean Corpuscular Hemoglobin 27pg (25-35) 26pg (25-35) Mean Corpuscular Hemoglobin Concent 32g/dL (31-37) 32g/dL (31-37) Red Cell Distribution Width 16.7% (11.5-14.5) 16.5% (11.5-14.5) Platelet Count 330x10^3/uL (140-400) 320x10^3/uL (140-400) Neutrophils (%) (Auto) 53% (31-73) 70% (31-73) Lymphocytes (%) (Auto) 34% (24-48) 21% (24-48) Monocytes (%) (Auto) 9% (0-9) 8% (0-9) Eosinophils (%) (Auto) 2% (0-3) 0% (0-3) Basophils (%) (Auto) 1% (0-3) 0% (0-3) Neutrophils # (Auto) 3.5x10^3uL (1.8-7.7) 5.7x10^3uL (1.8-7.7) Lymphocytes # (Auto) 2.3x10^3/uL (1.0-4.8) 1.7x10^3/uL (1.0-4.8) Monocytes # (Auto) 0.6x10^3/uL (0.0-1.1) 0.7x10^3/uL (0.0-1.1) Eosinophils # (Auto) 0.2x10^3/uL (0.0-0.7) 0.0x10^3/uL (0.0-0.7) Basophils # (Auto) 0.1x10^3/uL (0.0-0.2) 0.0x10^3/uL (0.0-0.2) Sodium Level 144mmol/L (136-145) 142mmol/L (136-145) Potassium Level 3.6mmol/L (3.5-5.1) 4.4mmol/L (3.5-5.1) Chloride Level 106mmol/L (98-107) 108mmol/L (98-107) Carbon Dioxide Level 27mmol/L (21-32) 24mmol/L (21-32) Anion Gap 11 (6-14) 10 (6-14) Blood Urea Nitrogen 19mg/dL (7-20) 16mg/dL (7-20) Creatinine 1.0mg/dL (0.6-1.0) 0.8mg/dL (0.6-1.0) Estimated GFR (Cockcroft-Gault) 60.2 77.9 Glucose Level 95mg/dL (70-99) 121mg/dL (70-99) Calcium Level 8.8mg/dL (8.5-10.1) 8.7mg/dL (8.5-10.1) Laboratory Tests Test 10/14/16 04:05 White Blood Count 8.2x10^3/uL (4.0-11.0) Red Blood Count 4.63x10^6/uL (3.50-5.40) Hemoglobin 12.1g/dL (12.0-15.5) Hematocrit 37.4% (36.0-47.0) Mean Corpuscular Volume 81fL (79-100) Mean Corpuscular Hemoglobin 26pg (25-35) Mean Corpuscular Hemoglobin Concent 32g/dL (31-37) Red Cell Distribution Width 16.5% (11.5-14.5) Platelet Count 320x10^3/uL (140-400) Neutrophils (%) (Auto) 70% (31-73) Lymphocytes (%) (Auto) 21% (24-48) Monocytes (%) (Auto) 8% (0-9) Eosinophils (%) (Auto) 0% (0-3) Basophils (%) (Auto) 0% (0-3) Neutrophils # (Auto) 5.7x10^3uL (1.8-7.7) Lymphocytes # (Auto) 1.7x10^3/uL (1.0-4.8) Monocytes # (Auto) 0.7x10^3/uL (0.0-1.1) Eosinophils # (Auto) 0.0x10^3/uL (0.0-0.7) Basophils # (Auto) 0.0x10^3/uL (0.0-0.2) Sodium Level 142mmol/L (136-145) Potassium Level 4.4mmol/L (3.5-5.1) Chloride Level 108mmol/L (98-107) Carbon Dioxide Level 24mmol/L (21-32) Anion Gap 10 (6-14) Blood Urea Nitrogen 16mg/dL (7-20) Creatinine 0.8mg/dL (0.6-1.0) Estimated GFR (Cockcroft-Gault) 77.9 Glucose Level 121mg/dL (70-99) Calcium Level 8.7mg/dL (8.5-10.1) Medications Current Medications Vancomycin HCl (Vanco Per Pharmacy) 1 each PRN DAILY PRN MC SEE COMMENTS Last administered on 10/12/16 19:54; Start 10/12/16 at 18:00; Stop 10/12/16 at 20:55 ; Status DC Ondansetron HCl (Zofran) 4 mg PRN Q8HRS PRN IV NAUSEA/VOMITING; Start 10/12/16 at 18:00; Stop 10/13/16 at 17:59; Status DC Fentanyl Citrate (Fentanyl 2ml Vial) 50 mcg PRN Q2HR PRN IV PAIN; Start at 18:00; Stop 10/13/16 at 17:59; Status DC Acetaminophen 650 mg 650 mg PRN Q4HRS PRN PO FEVER; Start 10/12/16 at 18:00; Stop 10/13/16 at 17:59; Status DC Vancomycin HCl 2 gm/Sodium Chloride 500 ml @ 250 mls/hr 1X ONCE IV Last administered on 10/12/16 18:32; Start 10/12/16 at 18:15; Stop 10/12/16 at 20:14 ; Status DC Vancomycin HCl/ Sodium Chloride (Iv Sodium Chloride 0.9% 500ml Bag) 500 ml @ 250 mls/hr Q8H IV ; Start 10/13/16 at 02:30; Stop 10/13/16 at 02:30; Status DC Vancomycin HCl 1 each 1 each 1X ONCE MC ; Start 10/13/16 at 18:00; Stop at 18:00; Status DC Ceftriaxone Sodium/Sodium Chloride (Rocephin/Iv Sodium Chloride 0.9% 50ml) 50 ml @ 100 mls/hr Q24H IV Last administered on 10/12/16 21:58; Start 10/12/16 at 21:00; Stop 10/13/16 at 13:55; Status DC Iohexol (Omnipaque 300 Mg/ml) 75 ml 1X ONCE IV Last administered on 10/13/16 10:04; Start 10/13/16 at 09:45; Stop 10/13/16 at 09:46; Status DC Info (Do NOT chart on this entry -- for MONITORING) 1 each PRN DAILY PRN MC SEE COMMENTS; Start 10/13/16 at 09:45; Stop 10/15/16 at 09:44 Fluconazole (Diflucan) 200 mg DAILY PO Last administered on 10/14/16 09:03; Start 10/13/16 at 11:15 Linezolid (Zyvox) 600 mg BID PO Last administered on 10/14/16 09:03; Start at 12:00 Prednisone (Prednisone) 60 mg 1X ONCE PO Last administered on 10/13/16 11:40 ; Start 10/13/16 at 11:15; Stop 10/13/16 at 11:21; Status DC Cefpodoxime Proxetil (Vantin) 200 mg BID PO Last administered on 10/14/16 09: 03; Start 10/13/16 at 21:00 Active Scripts Active [place] 5-325 Tablet (Acetaminophen/Hydrocodone Bitart) 1 Each Tablet 1-2 Tab PO Q4-6HRS Reported No Known Medications Prior To Admisstion (Info) Each 1 Each MC Vitals/I & O Vital Sign - Last 24 Hours 10/13/16 10/13/16 10/13/16 10/13/16 10:52 14:40 19:00 19:00 Temp 97.4 98.9 98.6 97.4 98.9 98.6 Pulse 66 71 76 Resp 20 20 18 B/P 145/87 141/80 152/77 Pulse Ox 97 96 95 O2 Delivery Room Air Room Air Nasal Cannula 10/13/16 10/14/16 10/14/16 23:00 03:00 07:20 Temp 98.5 98.8 98.1 98.5 98.8 98.1 Pulse 79 76 72 Resp 16 16 14 B/P 152/88 141/81 155/87 Pulse Ox 96 96 97 O2 Delivery Room Air Intake and Output 10/13/16 10/13/16 10/14/16 15:00 23:00 07:00 Intake Total 360 ml 360 ml 120 ml Output Total 200 ml 200 ml Balance 160 ml 160 ml 120 ml JATIN ARMSTRONG III DO Oct 14, 2016 10:00
[2016-10-14 11:20] VITALS: BP 159/96
--- NOTE | 2016-10-18 12:05 | DS ---
DATE OF DISCHARGE: 10/14/2016 ADMISSION DIAGNOSIS: Left lower extremity cellulitis. DISCHARGE DIAGNOSIS: Resolving left lower extremity cellulitis. HOSPITAL COURSE: The patient is a pleasant 46-year-old female who presented with left lower extremity cellulitis. She was admitted. We gave her IV antibiotics. We did some wound care. She is generally doing better. We plan to discharge to home with continued p.o. antibiotics. DISPOSITION: Home. ACTIVITY: As tolerated. DIET: Low sodium. MEDICATIONS: Please see the MRAD. TOTAL TIME: 32 minutes. JATIN ARMSTRONG DO DR: LION/oral JOB#: [id number] / [id number]
== END 2016-10-14 13:33 | disposition home or self-care (01) | DRG 603 ==
LOC: ER 16:30 → ED HOLD 17:40 → 5 SOUTH 20:10
PROVIDERS: ADMIT Internal Medicine; ATTEND Internal Medicine
DX: L03.116 Cellulitis of left lower limb (principal); Z68.41 Body mass index [BMI] 40.0-44.9, adult; F17.200 Nicotine dependence, unspecified, uncomplicated; I10 Essential (primary) hypertension; E66.01 Morbid (severe) obesity due to excess calories; Z82.49 Family history of ischemic heart disease and other diseases of the circulatory system
CPT/HCPCS: 36415; 70487; 80048; 85027; 93923; J0696; J3370; J7040; J7512; Q9967

== ENCOUNTER 2020-02-21 18:50 | Emergency (ER) | payer BC ==
[~2020-02-21] VITALS: Ht 185.4 cm; Wt 170.0 kg
[~2020-02-21 18:50] MED LIST changes: +AMOX1TAB61 PO; +FLUC100T4 PO; +HYDR-3164 PO; -HYDR-971 PO; +TRIA1TAB3 PO
[2020-02-21 19:34] VITALS: BP 151/97
[2020-02-21] MEDS ORDERED: PRED20TA PO (19:49)
[2020-02-21] MEDS ORDERED: GABA300C2 PO (19:49)
--- NOTE | 2020-02-21 19:49 | PHYS DOC ---
Past Medical History Past Medical History: Other Additional Past Medical Histor: Cellulitis Past Surgical History: Tubal ligation, Other Additional Past Surgical Histo: dental Smoking Status: Current Every Day Smoker Alcohol Use: None Drug Use: None General Adult EDM: Chief Complaint: INSECT BITE HPI: HPI: Patient is a 49 year old female who presents with a 2 to 3-day history of rash on the left side of face and left side of her neck. Patient says it began on the ear and that is spread to the left side of her neck and in her posterior left neck. Patient states that the rash is painful and feels like burning. Patient denies any fevers or chills. Patient denies any visual changes. Patient denies any inciting events. Patient called a physician munitions worker and was started on Valtrex for possible shingles. Patient denies any sick contacts. Review of Systems: Review of Systems: Constitutional: Denies fever or chills. [] Eyes: Denies change in visual acuity. [] HENT: Denies nasal congestion or sore throat. [] Respiratory: Denies cough or shortness of breath. [] Cardiovascular: Denies chest pain or edema. [] GI: Denies abdominal pain, nausea, vomiting, bloody stools or diarrhea. [] : Denies dysuria. [] Musculoskeletal: Denies back pain or joint pain. [] Integument: Complains of rash Neurologic: Denies headache, focal weakness or sensory changes. [] Endocrine: Denies polyuria or polydipsia. [] Lymphatic: Denies swollen glands. [] Psychiatric: Denies depression or anxiety. [] Heart Score: Risk Factors: Risk Factors: DM, Current or recent (<one month) smoker, HTN, HLP, family history of CAD, obesity. Risk Scores: Score 0 - 3: 2.5% MACE over next 6 weeks - Discharge Home Score 4 - 6: 20.3% MACE over next 6 weeks - Admit for Clinical Observation Score 7 - 10: 72.7% MACE over next 6 weeks - Early Invasive Strategies Allergies: Allergies: Allergies Coded Allergies Type Severity Reaction Last Updated Verified No Known Drug Allergies 05/01/14 No Physical Exam: PE: Constitutional: Well developed, well nourished, no acute distress, non-toxic appearance. [] HENT: Normocephalic, atraumatic, no trismus nose normal. [Rash to the left ear and below and left side of the lateral neck and posterior neck. Rash is pink with appears to be vesicles on top. There is some crusting around the left ear. Old soft tissue mass on the right mandible. Eyes: PERRLA, EOMI, conjunctiva normal, no discharge. [] Neck: Normal range of motion, left periauricular lymphadenopathy. Golden rash with some vesicles on the left side of the neck. Cardiovascular:Heart rate regular rhythm, Lungs & Thorax: No respiratory distress Abdomen: Bowel sounds normal, soft, no tenderness, no masses, Skin: Warm, dry, no erythema, no rash. [] Back: No tenderness, no CVA tenderness. [] Extremities: No tenderness, no cyanosis, no clubbing, ROM intact, no edema. [] Neurologic: Alert and oriented X 3, normal motor function, normal sensory function, no focal deficits noted. [] Psychologic: Affect normal, judgement normal, mood normal. [] EKG: EKG: [] Radiology/Procedures: Radiology/Procedures: [] Course & Med Decision Making: Course & Med Decision Making Pertinent Labs and Imaging studies reviewed. (See chart for details) [] 49-year-old female presents with a rash is consistent with shingles. There is no evidence of mucosal involvement at this time. Patient has a prescription for Valtrex already. Patient placed on Neurontin and prednisone. Return precautions given. Crow Disclaimer: Crow Disclaimer: This electronic medical record was generated, in whole or in part, using a voice recognition dictation system. Departure Departure Impression: Primary Impression: Shingles Disposition: 01 HOME, SELF-CARE Condition: STABLE Referrals: PCP 2-3 DAYS UNKNOWN PCP NAME (PCP) Patient Instructions: Shingles Additional Instructions: EMERGENCY DEPARTMENT GENERAL DISCHARGE INSTRUCTIONS THANK YOU for coming to [facility] Emergency Department (ED) today and trusting us with your care. We trust that you had a positive experience in our Emergency Department. If you wish to speak to the department Management you can contact the physics department chair at . YOUR FOLLOW UP INSTRUCTIONS ARE FOLLOWS: Do you have a private doctor? If you do not have a private doctor, please ask for a resource list of physicians or clinics that may be able to assist you with follow up care. The Emergency Physician has interpreted your x-rays. The X-ray specialist will also review them. If there is a change in the findings you will be notified in 48 hours when at all possible. A lab test or lab culture may have been done, your results will be reviewed and you will be notified if you need a change in treatment. ADDITIONAL INSTRUCTIONS AND INFORMATION Your care today has been supervised by a physician who is specially trained in emergency care. Many problems require more than one evaluation for a complete diagnosis and treatment. We recommend that you schedule your follow up appointment as recommended to ensure complete treatment of your illness or injury. If you are unable to obtain follow up care and continue to have a problem, or if your condition worsens we recommend that you return to the ED. We are not able to safely determine your condition over the phone nor are we able to give sound medical advice over the phone. For these safety reasons, if you call for medical advice we will ask you to come to the ED for further evaluation If you have any questions regarding these discharge instructions please call the ED at . SAFETY INFORMATION In the interest of safety, wellness, and injury prevention; we encourage you to wear your seatbelt, if you smoke; quit smoking, and we encourage your family to use protective helmet for bicycling and other sporting events that present an increased risk for head injury. IF YOUR SYMPTOMS WORSEN OR NEW SYMPTOMS DEVELOP, OR YOU HAVE CONCERNS ABOUT YOUR CONDITION; OR IF YOUR CONDITION WORSENS WHILE YOU ARE WAITING FOR YOUR FOLLOW UP APPOINTMENT; EITHER CONTACT YOUR PRIMARY CARE DOCTOR, THE PHYSICIAN WHOSE NAME AND NUMBER YOU WERE GIVEN, OR RETURN TO THE ED IMMEDIATELY. Continue continue take Valtrex as prescribed, return if concerns. Return if rash involves the eyes or the mouth. Scripts Prednisone (PREDNISONE) 20 Mg Tablet 60 MG PO DAILY for 10 Days, #30 TAB Prov: NUBIA FAGAN MD 02/21/20 Gabapentin (Neurontin) 300 Mg Capsule 300 MG PO DAILY for 10 Days, #10 CAP Take 300 mg on day 1 at the 300 mg twice a day on day 2 then 300 mg 3 times a day for the next 8 days Prov: NUBIA FAGAN MD 02/21/20 Justicifation of Admission Dx: Justifications for Admission: Justification of Admission Dx: N/A NUBIA FAGAN MD Feb 21, 2020 19:49
== END 2020-02-21 20:00 | disposition home or self-care (01) ==
LOC: ER 18:50
DX: B02.9 Zoster without complications (principal); F17.200 Nicotine dependence, unspecified, uncomplicated
CPT/HCPCS: 99283